=== PATIENT | male | born 1975 | race American Indian/Alaskan Native ===

== ENCOUNTER 2018-07-03 20:14 | Emergency (ER) | payer MEDICARE, MEDICAID, OTHER ==
[2018-07-03 20:14] VITALS: BMI 24.4
[2018-07-03 21:34] VITALS: BP 134/82; PULSE 81; RESP 18; TEMP 98.1; O2SAT 98
[2018-07-03] MEDS ORDERED: Naproxen 500 MG TAB PO ONE ×2 (21:53→22:10)
--- NOTE | 2018-07-03 22:01 | ED PDOC ---
HPI: Back Time Seen by Provider: 07/03/18 21:35 Chief Complaint (Nursing): Lower Extremity Problem/Injury History Per: Patient Additional Complaint(s): Pt. states this morning he woke up with atraumatic R sided lower back pain radiating down the R leg. Reports having the same symptoms "ever since childhood." Pain is worse with movement of upper torso and of R leg. Pt. states he has not taken any meds to help relieve symptoms today. Denies dysuria, hematuria, fever, chills, antipyretic use, N/V/D, incontinence, weakness, saddle paresthesias, L leg pain contrary to triage note. Past Medical History Reviewed: Historical Data, Nursing Documentation, Vital Signs Vital Signs: Last Vital Signs Temp 98.1 F 07/03/18 21:29 Pulse 81 07/03/18 21:29 Resp 18 07/03/18 21:29 BP 134/82 07/03/18 21:29 Pulse Ox 98 07/03/18 21:29 - Medical History PMH: Anxiety, Bipolar Disorder, Depression, Schizophrenia Denies: Diabetes, Hepatitis, HIV, HTN, Chronic Kidney Disease, Seizures, Sexually Transmitted Disease - Surgical History Surgical History: No Surg Hx - Family History Family History: States: No Known Family Hx - Immunization History Hx Tetanus Toxoid Vaccination: No Hx Influenza Vaccination: No Hx Pneumococcal Vaccination: No - Home Medications Home Medications: Ambulatory Orders Medication Instructions Recorded Naproxen [Naprosyn] 500 mg PO BID PRN #10 tab 07/03/18 - Allergies Allergies/Adverse Reactions: Allergies Allergy/AdvReac Type Severity Reaction Status Date / Time amoxicillin Allergy RASH Verified 05/28/18 23:38 seasonal Allergy ANAPHYLAXIS Uncoded 04/02/18 09:04 Review of Systems ROS Statement: Except As Marked, All Systems Reviewed And Found Negative Musculoskeletal: Positive for: Back Pain Physical Exam - Physical Exam Appears: Positive for: Well, Non-toxic, No Acute Distress Skin: Positive for: Normal Color, Warm. Negative for: Rash Eye Exam: Positive for: Normal appearance Cardiovascular/Chest: Positive for: Regular Rate, Rhythm Respiratory: Positive for: Normal Breath Sounds Pulses-Dorsalis Pedis (L): 2+ Pulses-Dorsalis Pedis (R): 2+ Gastrointestinal/Abdominal: Positive for: Normal Exam, Soft. Negative for: Tenderness Back: Positive for: Normal Inspection, Muscle Spasm (R sided paralumbar tenderness). Negative for: L CVA Tenderness, R CVA Tenderness, Vertebral Tenderness Extremity: Positive for: Other (lower extremity strength 5/5 b/l; actively moving all 4 extremities without difficulty). Negative for: Calf Tenderness (b/l) Neurologic/Psych: Positive for: Alert, Oriented (x3), Gait (steady, unassisted) - ECG O2 Sat by Pulse Oximetry: 98 - Progress ED Course And Treament: Naproxen 500mg PO ordered. On re-evaluation, pt. in no distress. Reports moderate analgesia. Gait steady, unassisted. Disposition - Clinical Impression Clinical Impression: Sciatica - Patient ED Disposition Is Patient to be Admitted: No - Disposition [facility]errals: [facility]] Disposition: Routine/Home Disposition Time: 23:11 Condition: IMPROVED Additional Instructions: FOLLOW UP WITH PMD FOR FURTHER EVALUATION RETURN TO ED IMMEDIATELY IF SYMPTOMS WORSEN NEIDA SIMPSON, thank you for letting us take care of you today. Your provider was Venancio Germain MD and you were treated for B/L LEG/ BACK PAIN. The emergency medical care you received today was directed at your acute symptoms. If you were prescribed any medication, please fill it and take as directed. It may take several days for your symptoms to resolve. Return to the Emergency Department if your symptoms worsen, do not improve, or if you have any other problems. Please contact your doctor or call one of the physicians/clinics you have been referred to that are listed on the Patient Visit Information form that is included in your discharge packet. Bring any paperwork you were given at discharge with you along with any medications you are taking to your follow up visit. Our treatment cannot replace ongoing medical care by a primary care provider outside of the emergency department. [facility] your care today. If you had an X-Ray or CT scan: A Radiologist will review the ED reading if any change in treatment is needed we will contact you. If you had a blood, urine, or wound culture: It will take several days for the results, if any change in treatment is needed we will contact you. If you had an STI test: It will take 48 hours for the results. Please call after 1 week if you have not heard back. Prescriptions: Naproxen [Naprosyn] 500 mg PO BID PRN #10 tab PRN Reason: Pain Instructions: Sciatica (DC) Forms: [employer] [facility] (Syriac) Print Language: MONTENEGRIN
[2018-07-03 22:47] LABS: URINE BILIRUBIN NEGATIVE (NEGATIVE); URINE BLOOD NEGATIVE (NEGATIVE); URINE CLARITY CLEAR (Clear); URINE COLOR YELLOW (YELLOW); URINE GLUCOSE (UA) NEG (NEGATIVE); URINE LEUKOCYTE ESTERASE NEG Leu/uL (Negative); URINE PROTEIN 30 mg/dL (NEGATIVE)
[2018-07-03 23:07] LABS: BARBITURATES, UR NEGATIVE (NEGATIVE); BENZODIAZEPINES, UR NEGATIVE (NEGATIVE); OPIATES, UR NEGATIVE (NEGATIVE); PHENCYCLIDINE, UR POSITIVE (NEGATIVE)
== END 2018-07-03 23:55 | disposition home or self-care (01) ==
LOC: H.ER 20:14
DX: M54.40 Lumbago with sciatica, unspecified side (principal)
CPT/HCPCS: 81003; 99283; G0480

== ENCOUNTER 2018-08-17 07:04 | Emergency (ER) | payer MEDICAID, MEDICARE, OTHER ==
--- NOTE | 2018-08-17 08:18 | ED PDOC ---
HPI: General Adult Time Seen by Provider: 08/17/18 07:45 Chief Complaint (Nursing): Psychiatric Evaluation Chief Complaint (Provider): Psychiatric Evaluation History Per: Patient History/Exam Limitations: no limitations Onset/Duration Of Symptoms: Days Current Symptoms Are (Timing): Still Present Additional Complaint(s): 43 year old male with a past medical history of anxiety, depression, bipolar disorder, and schizophrenia who was brought to the ED for psychiatric clearance in custody of [facility] department. Patient states that he was brought in because of depression and anxiety associated with relationship problems noted with , sister, mother, old friends, and new friends. He denies any medical complaints at this time and denies homicidal or suicidal ideation. PMD: none provided Past Medical History Reviewed: Historical Data, Nursing Documentation, Vital Signs Vital Signs: Last Vital Signs Temp 98.2 F 08/17/18 07:06 Pulse 81 08/17/18 07:06 Resp 20 08/17/18 07:06 BP 180/100 H 08/17/18 07:06 Pulse Ox 98 08/17/18 07:06 - Medical History PMH: Anxiety, Bipolar Disorder, Depression, Schizophrenia Denies: Diabetes, Hepatitis, HIV, HTN, Chronic Kidney Disease, Seizures, Sexually Transmitted Disease - Surgical History Other surgeries: orthopedic surgery - Family History Family History: States: Unknown Family Hx - Social History Current smoker - smoking cessation education provided: Yes (heavy ) Alcohol: Social Drugs: Cannabis, Cocaine, Other (PCP) - Immunization History Hx Tetanus Toxoid Vaccination: No Hx Influenza Vaccination: No Hx Pneumococcal Vaccination: No - Home Medications Home Medications: Ambulatory Orders Medication Instructions Recorded Naproxen [Naprosyn] 500 mg PO BID PRN #10 tab 07/03/18 Ibuprofen [Motrin Tab] 600 mg PO Q8 #30 tab 08/06/18 - Allergies Allergies/Adverse Reactions: Allergies Allergy/AdvReac Type Severity Reaction Status Date / Time amoxicillin Allergy RASH Verified 08/06/18 10:25 seasonal Allergy ANAPHYLAXIS Uncoded 08/06/18 10:25 Review of Systems ROS Statement: Except As Marked, All Systems Reviewed And Found Negative Psych: Positive for: Anxiety, Depression. Negative for: Suicidal ideation, Other (homicidal ideation) Physical Exam - Reviewed Nursing Documentation Reviewed: Yes Vital Signs Reviewed: Yes - Physical Exam Appears: Positive for: Non-toxic, No Acute Distress (patient smells of urine, disheveled, wearing multiple layers of clothing ) Head Exam: Positive for: ATRAUMATIC, NORMAL INSPECTION, NORMOCEPHALIC Skin: Positive for: Normal Color, Warm, DRY Eye Exam: Positive for: Normal appearance Cardiovascular/Chest: Positive for: Regular Rate, Rhythm. Negative for: Murmur Respiratory: Positive for: Normal Breath Sounds. Negative for: Respiratory Distress Gastrointestinal/Abdominal: Positive for: Normal Exam, Soft. Negative for: Tenderness Back: Positive for: Normal Inspection Extremity: Positive for: Normal ROM. Negative for: Deformity, Swelling Neurologic/Psych: Positive for: Alert, Oriented (x3). Negative for: Motor/Sensory Deficits - ECG O2 Sat by Pulse Oximetry: 98 (RA) Pulse Ox Interpretation: Normal Medical Decision Making Medical Decision Making: Time: 7:50 A/P: Patient presenting for medical and psychiatric clearance for incarceration --No indication for med intervention --Crisis evaluation placed --reevaluate patient prior to discharge 8:55 Pt seen and evaluated by crisis team who determined pt has baseline scizophrenia but no acute exacerbation and no need for intervention. Dr. Ashley (psychiatrist) recommends the patient see a psychiatrist in longterm is available or follow up with outpatient psychiatry. Pt is medically and psychiatrically cleared for incarceration. Scribe Attestation: Documented by Karla Crain, acting as a scribe for Liliana Lares MD. Provider Scribe Attestation: All medical record entries made by the Scribe were at my direction and personally dictated by me. I have reviewed the chart and agree that the record accurately reflects my personal performance of the history, physical exam, medical decision making, and the department course for this patient. I have also personally directed, reviewed, and agree with the discharge instructions and disposition. Disposition - Clinical Impression Clinical Impression: Psychosis, Anxiety, Encounter for medical assessment - Patient ED Disposition Is Patient to be Admitted: No - Disposition Disposition: Routine/Home Disposition Time: 08:55 Condition: STABLE Forms: [employer] (Turkmen)
[2018-08-17 10:25] VITALS: BP 118/71; PULSE 84; RESP 18; TEMP 98; O2SAT 98; BMI 37.5
== END 2018-08-17 09:05 ==
LOC: H.ER 07:04
DX: F29 Unspecified psychosis not due to a substance or known physiological condition; F41.9 Anxiety disorder, unspecified; F17.200 Nicotine dependence, unspecified, uncomplicated; F20.9 Schizophrenia, unspecified; F31.9 Bipolar disorder, unspecified